=== PATIENT | female | born 1965 | race Caucasian/White ===

== ENCOUNTER → 2016-09-19 | Outpatient (CLI) | payer BC ==
--- NOTE | 2016-09-19 14:34 | US ---
EXAMINATION TYPE: US pelvic complete DATE OF EXAM: 09/19/2016 2:04 PM COMPARISON: In pacs pelvic ultrasound 10/30/2013 CLINICAL HISTORY: Pelvic pain, 1, para 1, partial hysterectomy in 2013. TECHNIQUE: Transabdominal (TA) pelvic ultrasound Date of LMP: 2013 EXAM MEASUREMENTS: Uterus: surgically absent Endometrial Stripe: surgically absent Right Ovary: 5.6 x 4.7 x 3.7cm Left Ovary: 2.8 x 1.7 x 1.7cm TECHNOLOGIST IMPRESSION: 1. Uterus: surgically absent 2. Endometrium: surgically absent 3. Right Ovary: 3.4 x 2.8 x 3.1cm cystic area 4. Left Ovary: wnl 5. Bilateral Adnexa: wnl 6. Posterior cul-de-sac: wnl Left ovary is felt within normal limits. Occupying majority of right ovary there is 3.4 x 2.8 x 3.1 c m simple appearing cyst noted. This is slightly smaller in size from prior exam. IMPRESSION: A stable 3.4 cm simple appearing right ovarian cyst is identified, this is diminished in size versus prior exam. No new suspicious lesions are seen. Finding is abnormal for postmenopausal fe male. At minimum annual surveillance is advised.
== END | disposition home or self-care (01) ==
LOC: RADUSWWP 13:41
PROVIDERS: ATTEND Obstetrics & Gynecology
DX: N83.201 Unspecified ovarian cyst, right side (principal); Z78.0 Asymptomatic menopausal state
CPT/HCPCS: 76856

== ENCOUNTER → 2018-01-07 | Outpatient (CLI) | payer BC ==
--- NOTE | 2018-01-09 09:01 | MM ---
Reason for exam: screening (asymptomatic). Last mammogram was performed 4 years and 4 months ago. History: Patient has history of other cancer at age 52 and had first child at age 32. Benign excisional biopsy of the left breast, January 31, 2007. Took hormonal contraceptives for 5 months. Taking estrogen for 1 year. Physical Findings: A clinical breast exam by your physician is recommended on an annual basis and results should be correlated with mammographic findings. MG Screening Mammo w CAD Bilateral CC and MLO view(s) were taken. Prior study comparison: September 11, 2013, bilateral digital screening mammo w/CAD. August 30, 2011, bilateral digital screening mammo w/CAD. The breast tissue is heterogeneously dense. This may lower the sensitivity of mammography. No significant changes when compared with prior studies. ASSESSMENT: Negative, BI-RAD 1 RECOMMENDATION: Routine screening mammogram of both breasts in 1 year.
== END | disposition home or self-care (01) ==
LOC: RADMAMWWP 15:23
PROVIDERS: ATTEND Family Medicine
DX: Z12.31 Encounter for screening mammogram for malignant neoplasm of breast (principal)
CPT/HCPCS: 77067

== ENCOUNTER → 2018-07-15 | Outpatient (CLI) | payer BC | END | disposition home or self-care (01) | LOC: LABWHC1 16:04 | PROVIDERS: ATTEND Obstetrics & Gynecology | DX: N83.209 Unspecified ovarian cyst, unspecified side (principal) | CPT/HCPCS: 36415; 86304 ==

== ENCOUNTER → 2021-04-18 | Outpatient (CLI) | payer BC ==
--- NOTE | 2021-04-20 09:50 | MM ---
Reason for exam: screening (asymptomatic). Last mammogram was performed 3 years and 3 months ago. History: Patient has history of other cancer at age 52 and had first child at age 32. Benign excisional biopsy of the left breast, January 31, 2007. Took hormonal contraceptives for 5 months. Taking estrogen for 1 year. Physical Findings: A clinical breast exam by your physician is recommended on an annual basis and results should be correlated with mammographic findings. MG Screening Mammo w CAD Bilateral CC and MLO view(s) were taken. Prior study comparison: January 07, 2018, bilateral MG screening mammo w CAD. September 11, 2013, bilateral digital screening mammo w/CAD. The breast tissue is extremely dense which could obscure a lesion on mammography. No significant changes when compared with prior studies. ASSESSMENT: Benign, BI-RAD 2 RECOMMENDATION: Routine screening mammogram of both breasts in 1 year.
== END | disposition home or self-care (01) ==
LOC: RADMAMWWP 16:20
PROVIDERS: ATTEND Family Medicine
DX: Z12.31 Encounter for screening mammogram for malignant neoplasm of breast (principal); Z85.9 Personal history of malignant neoplasm, unspecified; Z79.3 Long term (current) use of hormonal contraceptives
CPT/HCPCS: 77067